=== PATIENT | female | born 1970 | race Hispanic/Latino ===

== ENCOUNTER 2017-06-22 07:56 | Emergency (ER) | payer SELFPAY ==
[2017-06-22] MEDS ORDERED: ACETAMINOPHEN 325 MG TAB ONE (08:27)
[2017-06-22 08:33] LABS: BASOPHILS % (AUTO) 0.7 % (0.0-5.0); EOSINOPHILS % (AUTO) 1.7 % (0.0-8.0); HEMATOCRIT 37.3 % (36-48); MEAN CORPUSCULAR HEMOGLOBIN 24.5 pg (27.0-33.0); MEAN CORPUSCULAR HGB CONC 32.6 g/dL (32.0-36.0); MONOCYTES % (AUTO) 6.9 % (3.0-13.0); NEUTROPHILS % (AUTO) 63.7 % (40.0-77.0); PLATELET COUNT (AUTO) 180 K/uL (130-400); RED BLOOD CELL COUNT(AUTO) 4.97 MIL/uL (4.00-5.50); RED CELL DISTRIBUTION WIDTH 17.2 % (11.0-15.5); WHITE BLOOD COUNT (AUTO) 6.1 K/uL (4.8-10.8)
[2017-06-22 08:41] LABS: CREATININE 0.4 mg/dL (0.5-1.5); POTASSIUM 3.8 mmol/L (3.5-5.1)
[2017-06-22] MEDS ORDERED: KETOROLAC TROMETHAMINE 30MG/ML ONE (09:30)
[2017-06-22] MEDS ORDERED: LORAZEPAM 2 MG/ML 1 ML VIAL ONE (13:04)
== END 2017-06-22 09:43 | disposition home or self-care (01) ==
LOC: EDH 07:56
DX: M25.512 Pain in left shoulder (principal)
CPT/HCPCS: 36415; 80048; 81025; 84484; 85025; 85378; 93005; 96374; 99285; J1885; J2060